=== PATIENT | female | born 1995 | race Caucasian/White ===

== ENCOUNTER 2017-12-21 14:08 | Emergency (ER) | payer MEDICAID ==
[2017-12-21] MEDS: DIPHTH/TET/ACEL PERTUSS (ADULT) 0.5 ML VIAL IM* (15:16)
[2017-12-21] MEDS: AMOXICILLIN/CLAV 875 MG TAB PO (15:40)
== END 2017-12-21 15:50 | disposition home or self-care (01) ==
LOC: FTE 14:08
DX: S81.012A Laceration without foreign body, left knee, initial encounter (principal); J45.909 Unspecified asthma, uncomplicated; W54.0XXA Bitten by dog, initial encounter; Y92.9 Unspecified place or not applicable; Z23 Encounter for immunization
CPT/HCPCS: 90471; 90715; 99283-25